=== PATIENT | male | born 1980 | race Caucasian/White ===

== ENCOUNTER 2020-01-16 22:48 | Emergency (ER) | payer SELFPAY ==
[2020-01-16 23:07] VITALS: BP 121/90; PULSE 109; RESP 18; TEMP 37; O2SAT 98; BMI 21.7
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
[2020-01-17 01:51] VITALS: BP 123/96; PULSE 111; RESP 20; O2SAT 98
--- NOTE | 2020-01-18 12:48 | DCPLANNER ---
marketing communications manager had message to schedule a follow up appointment for patient with ortho. marketing communications manager called the ortho clinic, spoke with Pat, gave clinic patients information. marketing communications manager was told that patients information would be printed and reviewed. Clinic will call showcase maker and patient with appointment information.
--- NOTE | 2020-01-21 13:42 | DCPLANNER ---
airport location manager spoke with Pat, was told that clinic was not able to speak with patient about the appointment.
== END 2020-01-17 02:09 | disposition home or self-care (01) ==
PROVIDERS: Emergency Provider Physician Assistant
DX: S43.102A Unspecified dislocation of left acromioclavicular joint, initial encounter (principal); Y04.8XXA Assault by other bodily force, initial encounter; Z87.891 Personal history of nicotine dependence
CPT/HCPCS: 12345; 73030; 99281; 99282

== ENCOUNTER 2022-09-13 17:42 | Emergency (ER) | payer OTHER, SELFPAY ==
[2022-09-13 17:52] VITALS: BP 111/73; PULSE 97; RESP 16; TEMP 36.7; O2SAT 97; BMI 24.6
--- NOTE | 2022-09-13 17:58 | USR_ITS ---
PROCEDURE INFORMATION: Exam: US Scrotum Exam date and time: 09/13/2022 6:16 PM Age: 42 years old Clinical indication: Groin pain; Patient HX: Patient works in heavy equipment operation. While on the job, five days ago, he fell about 2 feet onto a steel rail, striking the scrotum. ; Additional info: Testicle pain TECHNIQUE: Imaging protocol: Real-time ultrasound of the scrotum and contents with color Doppler and image documentation. COMPARISON: No relevant prior studies available. FINDINGS: Right testicle: 4.7 x 2.7 x 3.6 cm with diffusely increased blood flow. No focal lesion. Left testicle: 4.7 x 2.8 x 2.9 cm with normal blood flow. No focal lesion. Large inhomogenous complicated left hydrocele with hyperdense regions. Epididymides: 3 cysts in the right epididymis measuring 0.5 cm, 0.5 cm, and 0.3 cm. The epididymi are normal in overall size with increased vascularity. Scrotum/soft tissues: Complicated bilateral hydroceles with internal septations. These measure 4.8 x 2.1 x 4.1 cm on the right and 2.1 x 0.8 x 2.4 cm on the left. US/US scrotum [id number] IMPRESSION: 1. No focal testicle lesion identified. Mild hypervascularity in the right testicle could represent hyperemia related to recent trauma. Mild orchitis cannot be excluded. 2. Complicated bilateral hydroceles with septations. These could represent maturing hematomas given the history of trauma. Septations related to infection are not excluded. 3. Mild hypervascularity within the epididymi. This could represent hyperemia related to recent trauma. Bilateral epididymitis is not excluded.
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
[2022-09-13] MEDS: morphine 4 mg/mL SDV 1 mL IM (19:33)
[2022-09-13] MEDS: ketorolac 30 mg/mL INJ 15 MG IM (19:33)
[2022-09-13 20:04] LABS: Specific Gravity, Urine 1.015 (1.005-1.030); Urine Appearance Clear (CLEAR); Urine Color Yellow (Yellow); pH Urine 6 (5-7)
[2022-09-13 20:05] LABS: Ketones Urine 1+ (Negative)
[2022-09-13 20:06] LABS: Blood Urine Trace (Negative); Urobilinogen Urine 1 mg/dL (Negative)
[2022-09-13 20:07] LABS: Add Urine Microscopic? YES
[2022-09-13 20:09] LABS: Add Urine Culture? No; Mucus Urine 3+ /hpf; RBC Urine 0-4 /hpf (0-2)
[2022-09-13] MEDS: oxyCODONE 5 mg IR Tab/Cap PO (20:39)
[2022-09-13] MEDS: doxycycline 100 mg Tablet PO (20:39)
[2022-09-13] MEDS: cefTRIAXone 500 MG in water for injection-sterile 1 ML IM (20:39)
[2022-09-13 20:50] VITALS: BP 134/81; PULSE 72; RESP 16; O2SAT 98
[2022-09-13 21:42] LABS: Bacteria Urine TRACE /hpf; Bilirubin Urine Neg (Negative); Glucose Urine UA Norm (Normal); Leukocyte Esterase Urine Negative (Negative); Nitrate Urine Negative (Negative); Protein Urine Neg (Negative); Squamous Epithelial Cell Urine 0-4 /hpf (0-5); Sulfosalicylic Acid Urine Negative (Negative); WBC Urine 0-4 /hpf (0-5)
--- NOTE | 2022-09-17 14:49 | DCPLANNER ---
Addendum entered by Lelia Stevenson 09/27/22 08:02: Patient had a follow up appointment scheduled with urology - patient did attend appointment. Addendum entered by Lelia Stevenson 09/20/22 08:52: Patient has a follow up appointment scheduled for August, at 12:[address] Hale at urology. Clinic will call patient with appointment information. Original Note: advanced manager had message to schedule a follow up appointment for patient with urology. advanced manager sent patients information to the front office staff at urology. Patients information will be printed and reviewed. Clinic will call patient with appointment information.
== END 2022-09-13 20:51 | disposition home or self-care (01) ==
PROVIDERS: Emergency Provider Emergency Medicine
DX: S39.848A Other specified injuries of external genitals, initial encounter (principal); W01.198A Fall on same level from slipping, tripping and stumbling with subsequent striking against other object, initial encounter; Y99.0 Civilian activity done for income or pay; N45.3 Epididymo-orchitis; N43.3 Hydrocele, unspecified
CPT/HCPCS: 76870; 81001; 96372; 99284; J0696; J1885; J2270

== ENCOUNTER → 2022-09-21 11:28 | Outpatient (BNVA) | payer OTHER, SELFPAY | PROVIDERS: Visit Provider Urology | DX: N50.819 Testicular pain, unspecified (principal) | CPT/HCPCS: 81003 ==